=== PATIENT | female | born 1950 | race Caucasian/White ===

== ENCOUNTER → 2017-11-10 | Outpatient (CLI) | payer MEDICARE, BC | LOC: MC.RAD 13:39 | DX: Z12.31 Encounter for screening mammogram for malignant neoplasm of breast (principal) ==

== ENCOUNTER → 2018-12-24 | Outpatient (CLI) | payer MEDICARE, BC | LOC: MC.RAD 10:00 | DX: Z12.31 Encounter for screening mammogram for malignant neoplasm of breast (principal) ==

== ENCOUNTER → 2019-01-08 | Outpatient (CLI) | payer MEDICARE, BC | LOC: COL.VAS 12:57 | DX: M79.89 Other specified soft tissue disorders (principal) ==

== ENCOUNTER → 2021-09-16 | Outpatient (CLI) | payer MEDICARE, BC | LOC: COL.VAS 10:25 | DX: I83.12 Varicose veins of left lower extremity with inflammation (principal); R79.89 Other specified abnormal findings of blood chemistry ==

== ENCOUNTER 2023-10-17 12:21 | Inpatient (IN) | payer MEDICARE, BC ==
[~2023-10-17] VITALS: Ht 165.1 cm; Wt 138.4 kg
[2023-10-17] VITALS (10 sets, daily range): BP systolic 104–133; BP diastolic 68–98; PULSE 59–88; TEMP 97.9–98.3
[~2023-10-17 12:21] MED LIST: 1/2 NS 1,000 ML IV SCH; ASPIRIN E.C. 8181 MG PO; CELEBREX 200MG200 MG PO; FOSAMAX 70MG TA70 MG PO; HCTZ 25MG TAB25 MG PO; KAPSPARGO SPRIN25 MG PO; LOPRESSOR 225 MG/TAB PO; LR 1,000 ML IV SCH; NS Flush 10 ML SYRINGE PRN ICA; NYSTATIN OR100 MU/ML PO; OSCAL 500 TAB500 MG PO; SYNTHROID0.125 MG/T PO; TRIAMCINOLONE A15 G1 TP
[2023-10-17] MEDS ORDERED: HCTZ 25MG TAB25 MG PO (13:07)
[2023-10-17] MEDS ORDERED: ELIQUIS 5MG PO (13:07)
[2023-10-17] MEDS ORDERED: TYLENOL 8 HR PO (13:08)
[2023-10-17 13:10] LABS: HEMATOCRIT 38.1 % (37.0-47.0); HEMOGLOBIN 12.4 g/dl (12.5-16.0); MEAN CELL VOLUME 93 fl (80.0-100.0); MEAN CORPUSCULAR HEMOGLOBIN 30 pg (27-31); MEAN CORPUSCULAR HGB CONC 33 g/dl (33.0-37.0); MEAN PLATELET VOLUME 10.7 fl (7.4-10.4); PLATELET COUNT 211 K/mm3 (130-400); RED BLOOD COUNT 4.11 M/mm3 (4.10-5.30); REDCELL DISTRIBUTION WIDTH-CV 14.4 % (11.5-14.5)
[2023-10-17 13:25] LABS: CALCIUM 9.9 mg/dL (8.4-10.2); CREATININE, serum 0.77 mg/dL (0.57-1.11); MAGNESIUM 1.7 mg/dL (1.6-2.6); POTASSIUM 3.6 mEq/L (3.5-4.5)
[2023-10-17 13:27] LABS: INR 1.6 (0.8-3.0); PROTHROMBIN TIME 16.7 SECONDS (9.7-12.8)
[2023-10-17 13:29] LABS: PARTIAL THROMBOPLASTIN TIME 36.3 SECONDS (26.0-37.0)
[2023-10-17 14:04] LABS: THYROID STIMULATING HORMONE 0.769 uIU/mL (0.350-4.940)
[2023-10-17] MEDS ORDERED: Lidocaine PF 2% (20 MG/ML) 5 ML VIAL ONE (15:04)
--- NOTE | 2023-10-17 15:36 | NUR ---
Please see anesthesia record and moderate sedation flowsheet for record of BOSSMAN/CV with DR. Adame.
[2023-10-17] MEDS ORDERED: Temazepam 15 MG CAP PO PRN (15:45)
--- NOTE | 2023-10-17 16:15 | NUR ---
Coral did well during her BOSSMAN/CV; she is awake and alert, pwd, SR 60's on monitor. BS report and handoff of care to Rylee CHEW.
[2023-10-17] MEDS ORDERED: Docusate Sodium 100 MG CAP PO PRN (16:30)
[2023-10-17] MEDS ORDERED: Acetaminophen 325 MG TAB PO PRN (16:30)
--- NOTE | 2023-10-17 17:15 | NUR ---
REPORT GIVEN TO NAINA CORTES OVER THE PHONE. PT WAS ASSISTED TO MEDICAL FLOOR VIA WHEELCHAIR AND REMAINED FREE FROM ACUTE CONCERNS AND COMPLAINTS.
--- NOTE | 2023-10-17 17:50 | NUR ---
PATIENT ARRIVED TO MEDICAL FLOOR AT APPROX 1710. PATIENT IS ALERT AND ORIENTED WITH STEADY GAIT. PATIENT USES CANE TO AMBULATE. ADMISSION COMPLETE. DENIES SKIN CONCERNS. NO SKIN ISSUES NOTED. IV TO LEFT AC CDI. VSS. TELEMETRY ON. PATIENT UP SITTING IN RECLINER EATING DINNER WITH FRIEND. CALL LIGHT WITHIN REACH.
--- NOTE | 2023-10-17 19:05 | NUR ---
PATIENT SITTING UP IN BEDSIDE RECLINER WITH TV ON WITH FRIEND AT BEDSIDE WITH NO ACUTE DISTRESS NOTED. PATIENT ON ROOM AIR. TELEMETRY INTACT. INT TO LEFT AC INTACT WITH NO COMPLICATIONS NOTED. BEDSIDE SHIFT REPORT COMPLETED WITH BENOIT CHEW AT THIS TIME. PATIENT DENIES ANY NEEDS. RECLINER LOCKED AND CALL LIGHT WITHIN REACH.
[2023-10-17] MEDS ORDERED: Apixaban 5 MG TABLET PO SCH (21:00)
[2023-10-17] MEDS ORDERED: NS Flush 10 ML SYRINGE BID ICA SCH ×2 (21:00)
--- NOTE | 2023-10-17 21:05 | NUR ---
PATIENT SITTING UP IN BEDSIDE RECLINER WATCH THE [employer] WITH FRIEND AT BEDSIDE WITH NO ACUTE DISTRESS NOTED. PATIENT ON ROOM AIR. TELEMETRY INTACT. INT TO LEFT AC INTACT WITH NO COMPLICATIONS NOTED. ASSESSMENT AND MEDICATION ADMINISTRATION COMPLETED AT THIS TIME. PATIENT TOLERATED WELL. WATER PITCER WITH WATER AND ICE GIVEN. ALL NEEDS MET. RECLINER LOCKED AND CALL LIGHT WITHIN REACH.
[2023-10-18] VITALS (12 sets, daily range): BP systolic 93–144; BP diastolic 54–82; PULSE 57–69; TEMP 97.4–98
--- NOTE | 2023-10-18 07:04 | NUR ---
Bedside report received from NAINA Lagos. Pt resting in bed with eyes closed and no complaints. Call light within reach.
[2023-10-18 07:38] LABS: BASO % 0.4 % (0.0-2.0); EOS # 0.2 K/mm3 (0.0-0.7); EOS % 2.2 % (0.0-4.0); GRAN # 4.2 K/mm3 (1.4-6.5); GRAN % 61.7 % (42.2-75.2); HEMATOCRIT 34.4 % (37.0-47.0); HEMOGLOBIN 10.9 g/dl (12.5-16.0); LYMPH # 1.6 K/mm3 (1.2-3.4); LYMPH % 23.4 % (20.0-51.0); MEAN CELL VOLUME 95 fl (80.0-100.0); MEAN CORPUSCULAR HEMOGLOBIN 30 pg (27-31); MEAN CORPUSCULAR HGB CONC 32 g/dl (33.0-37.0); MEAN PLATELET VOLUME 11.2 fl (7.4-10.4); MONO # 0.8 K/mm3 (0.1-0.6); PLATELET COUNT 199 K/mm3 (130-400); RED BLOOD COUNT 3.61 M/mm3 (4.10-5.30); REDCELL DISTRIBUTION WIDTH-CV 14.6 % (11.5-14.5)
[2023-10-18 08:00] LABS: CALCIUM 9.1 mg/dL (8.4-10.2); CREATININE, serum 0.76 mg/dL (0.57-1.11); POTASSIUM 3.4 mEq/L (3.5-4.5)
[2023-10-18] MEDS ORDERED: hydroCHLOROthiazide 25 MG TAB PO SCH (09:00)
--- NOTE | 2023-10-18 10:01 | NUR ---
gas pit worker met with patient to discuss discharge planning. Patient reports to live alone in [place]. Best points of contacts is Taiwo (son) [phone] and Wendi (friend) P# [phone]. PCP is Dr. Vannesa Valdivia, pharmacy is [facility] in [facility]. Insurance is Medicare A and B, [facility]. DPOA-HC is on file at patient's PCP, patient believes it is Wendi but she was not completely certain. DME is cane. Patient reports to be independent with ADLS and transportation. No issues with affording medications. Patient would like to return home at time of discharge. Discharge plan: Home
--- NOTE | 2023-10-18 15:59 | NUR ---
platform worker attempted to contact patient's son, Taiwo, no answer. Voicemail was connected to a work number, social work will follow up. Discharge plan: Home
--- NOTE | 2023-10-18 17:14 | NUR ---
Pt awake in room. Shift assessment completed. VSS. Telemetry in place, NSR. Pt ambulates independently with no complications. INT to LAC patent with no redness, drainage, and swelling. Pt denies pain at this time rating 0/10. Pt has no complaints at this time. Call light within reach.
--- NOTE | 2023-10-18 18:57 | NUR ---
PATIENT SITTING UP IN BEDSIDE RECLINER WITH TV ON WITH FRIEND AT BEDSIDE WITH NO ACUTE DISTRESS NOTED. PATIENT ON ROOM AIR. INT TO LEFT AC INTACT WITH NO COMPLICATIONS NOTED. TELEMETRY INTACT. BEDSIDE SHIFT REPORT COMPLETED WITH YOLY AT THIS TIME. PATIENT DENIES ANY NEEDS. RECLINER LOCKED AND CALL LIGHT WITHIN REACH.
--- NOTE | 2023-10-18 19:05 | NUR ---
Bedside report given to NAINA Lagos. Pt awake in recliner with no complaints. Call light within reach.
--- NOTE | 2023-10-18 19:35 | NUR ---
PATIENT SITTING IN BEDSIDE RECLINER WATCHING THE [employer] WITH FRIEND AT BEDSIDE WITH NO ACUTE DISTRESS NOTED. PATIENT ON ROOM AIR. INT TO LEFT AC INTACT WITH NO COMPLICATIONS NOTED. TELEMETRY INTACT. ASSESSMENT COMPLETED AT THIS TIME. PATIENT TOLERATED WELL. PATIENT DENIES ANY NEEDS. RECLINER LOCKED AND CALL LIGHT WITHIN REACH.
--- NOTE | 2023-10-18 22:16 | NUR ---
PATIENT RESTING SITTING UP IN BEDSIDE RECLINER WITH TV ON WITH NO FAMILY PRESENT WITH NO ACUTE DISTRESS NOTED. PATIENT ON ROOM AIR. INT TO LEFT AC INTACT WITH NO COMPLICATIONS NOTED. TELEMETRY INTACT. MEDICATION ADMINISTRATION COMPLETED AT THIS TIME. PATIENT TOLERATED WELL. PATIENT REQUESTED TYLENOL FOR KNEE PAIN. PO TYLENOL GIVEN PER MD ORDER. PATIENT STATED THAT HER KNEE IS JUST ACHING. PATIENT DENIES ANY OTHER NEEDS. RECLINER LOCKED AND CALL LIGHT WITHIN REACH.
[2023-10-19 00:05] VITALS: BP_SYST 112
[2023-10-19 00:32] VITALS: BP 112/65; PULSE 60; TEMP 97.5
[2023-10-19 03:02] VITALS: BP 114/67; PULSE 54; TEMP 97.5
[2023-10-19 04:37] VITALS: BP_SYST 114
[2023-10-19 05:53] LABS: BASO % 0.4 % (0.0-2.0); EOS # 0.2 K/mm3 (0.0-0.7); EOS % 2.9 % (0.0-4.0); GRAN # 4.1 K/mm3 (1.4-6.5); HEMOGLOBIN 10.8 g/dl (12.5-16.0); LYMPH # 1.6 K/mm3 (1.2-3.4); LYMPH % 22.8 % (20.0-51.0); MEAN CELL VOLUME 92 fl (80.0-100.0); MEAN CORPUSCULAR HEMOGLOBIN 30 pg (27-31); MEAN CORPUSCULAR HGB CONC 33 g/dl (33.0-37.0); MONO # 0.9 K/mm3 (0.1-0.6); MONO % 12.8 % (1.7-9.3); PLATELET COUNT 178 K/mm3 (130-400); RED BLOOD COUNT 3.61 M/mm3 (4.10-5.30); REDCELL DISTRIBUTION WIDTH-CV 14.4 % (11.5-14.5)
[2023-10-19 05:59] LABS: CREATININE, serum 0.77 mg/dL (0.57-1.11); POTASSIUM 3.5 mEq/L (3.5-4.5)
[2023-10-19 06:02] LABS: HEMATOCRIT 33.1 % (37.0-47.0)
[2023-10-19 07:16] VITALS: BP 98/63; PULSE 55; TEMP 97.7
--- NOTE | 2023-10-19 08:00 | NUR ---
PATIENT SITTING UP IN CHAIR. ALERT AND ORIENTED. HAD UNEVENTFUL NIGHT. SHIFT ASSESSMENT COMPLETE. VSS. PATIENT STATES SHE IS HOPING TO GO HOME TODAY. DENIES PAIN OR DISCOMFORT AT THIS TIME. CALL LIGHT WITHIN REACH.
[2023-10-19 09:23] VITALS: BP_SYST 98
[2023-10-19] MEDS ORDERED: BETAPACE 120MG120 MG PO (09:46)
--- NOTE | 2023-10-19 11:33 | NUR ---
mining support worker attended clinical rounding and was made aware pt will discharge today. SW viewed her walking independent with a cane. Discharge Plan: home
--- NOTE | 2023-10-19 12:46 | NUR ---
PATIENT ESCORTED OFF UNIT AT APPROX 1100. ALL BELONGINGS WITH PATIENT.
== END 2023-10-19 11:00 | disposition home or self-care (01) | DRG 310 ==
LOC: MEDICAL 12:21 → COL.CAR 12:21 → EDSTATUS 12:30 → COL.CAR 12:30 → MEDICAL 15:00 → COL.CAR 17:49 → MEDICAL 10-19 10:40
PROVIDERS: ADMIT Internal Medicine Cardiovascular Disease
PROC: 5A2204Z Restoration of Cardiac Rhythm, Single (ICD-10-PCS; principal; 2023-10-17)
DX: I48.91 Unspecified atrial fibrillation (principal)
CPT/HCPCS: OP; J2704